=== PATIENT | male | born 1975 | race Caucasian/White ===

== ENCOUNTER 2020-12-20 14:43 | Emergency (ER) | payer SELFPAY ==
[~2020-12-20] VITALS: Ht 165.1 cm; Wt 87.9 kg
[2020-12-20 14:56] VITALS: BP 123/76
[2020-12-20 15:15] LABS: BASO % 1 % (0-3); EOS # 0.2 x10^3/uL (0.0-0.7); EOS % 2 % (0-3); HEMATOCRIT 42.6 % (39.0-53.0); HEMOGLOBIN 13.8 g/dL (13.0-17.5); LYMPH # 3.9 x10^3/uL (1.0-4.8); LYMPH % 43 % (24-48); MEAN CORPUSCULAR HEMOGLOBIN 31 pg (25-35); MEAN CORPUSCULAR HGB CONC 33 g/dL (31-37); MEAN CORPUSCULAR VOLUME 94 fL (79-100); MONO # 0.6 x10^3/uL (0.0-1.1); MONO % 7 % (0-9); NEUT # 4.3 x10^3uL (1.8-7.7); NEUT % 47 % (31-73); PLATELET COUNT 335 x10^3/uL (140-400); RED BLOOD COUNT 4.53 x10^6/uL (4.30-5.70)
[2020-12-20 15:27] LABS: CALCIUM 8.7 mg/dL (8.5-10.1); CREATININE 0.7 mg/dL (0.7-1.3); GFR 121.4; POTASSIUM 3.6 mmol/L (3.5-5.1)
[2020-12-20 15:32] LABS: ALBUMIN 3.3 g/dL (3.4-5.0); ALBUMIN/GLOBULIN RATIO 0.8 (1.0-1.7); TOTAL BILIRUBIN 0.2 mg/dL (0.2-1.0); TOTAL PROTEIN 7.5 g/dL (6.4-8.2)
--- NOTE | 2020-12-20 15:35 | PHYS DOC ---
Past History Past Surgical History: Other Additional Past Surgical Histo: necrotic bowel removal = colostomy in and out on may 2020 General Adult EDM: Chief Complaint: ALCOHOL INTOXICATION HPI: HPI: 45-year-old male presents via EMS with alcohol intoxication. The history comes from EMS. During the interview he was too intoxicated to answer my questions. He reportedly drank 2 bottles of whiskey today. Bystanders called EMS and they brought him here. No reported falls or trauma. Review of Systems: Review of Systems: Unable to assess based on patient's condition. Current Medications: Current Meds: Current Medications Medications (Trade) Dose Ordered Sig/Balwinder Start Time Stop Time Status Last Admin Dose Admin Multivitamins/ Minerals 10 ml/ Folic Acid 1 mg/ Thiamine HCl 100 mg/Sodium Chloride 1,011.3 ml @ 1,000.187 mls/hr 1X ONCE 12/20/20 15:15 12/20/20 16:15 UNV Physical Exam: PE: Constitutional: Well developed, well nourished, no acute distress. [] HENT: Normocephalic, atraumatic, bilateral external ears normal, oropharynx moist, no oral exudates, nose normal. [] Eyes: PERRLA, EOMI, conjunctiva normal, no discharge. [] Neck: No tenderness, supple, no stridor. [] Cardiovascular: Heart rate 101, regular rhythm, no murmur [] Lungs & Thorax: Bilateral breath sounds clear to auscultation [] Abdomen: Bowel sounds normal, soft, no tenderness, no masses, no pulsatile masses. [] Skin: Warm, dry, no erythema, no rash. [] Extremities: No tenderness, no cyanosis, no clubbing, ROM intact, no edema. [] Neurologic: Intoxicated [] Psychologic: Unable to assess. [] Current Patient Data: Labs: Laboratory Tests Test 12/20/20 14:49 White Blood Count 9.0 x10^3/uL (4.0-11.0) Red Blood Count 4.53 x10^6/uL (4.30-5.70) Hemoglobin 13.8 g/dL (13.0-17.5) Hematocrit 42.6 % (39.0-53.0) Mean Corpuscular Volume 94 fL (79-100) Mean Corpuscular Hemoglobin 31 pg (25-35) Mean Corpuscular Hemoglobin Concent 33 g/dL (31-37) Red Cell Distribution Width 15.0 % (11.5-14.5) H Platelet Count 335 x10^3/uL (140-400) Neutrophils (%) (Auto) 47 % (31-73) Lymphocytes (%) (Auto) 43 % (24-48) Monocytes (%) (Auto) 7 % (0-9) Eosinophils (%) (Auto) 2 % (0-3) Basophils (%) (Auto) 1 % (0-3) Neutrophils # (Auto) 4.3 x10^3uL (1.8-7.7) Lymphocytes # (Auto) 3.9 x10^3/uL (1.0-4.8) Monocytes # (Auto) 0.6 x10^3/uL (0.0-1.1) Eosinophils # (Auto) 0.2 x10^3/uL (0.0-0.7) Basophils # (Auto) 0.0 x10^3/uL (0.0-0.2) EKG: EKG: [] Radiology/Procedures: Radiology/Procedures: [] Heart Score: C/O Chest Pain: N/A Risk Factors: Risk Factors: DM, Current or recent (<one month) smoker, HTN, HLP, family his tory of CAD, obesity. Risk Scores: Score 0 - 3: 2.5% MACE over next 6 weeks - Discharge Home Score 4 - 6: 20.3% MACE over next 6 weeks - Admit for Clinical Observation Score 7 - 10: 72.7% MACE over next 6 weeks - Early Invasive Strategies Course & Med Decision Making: Course & Med Decision Making Pertinent Labs and Imaging studies reviewed. (See chart for details) After we get the patient alcohol level back which is greater than 460, I went in there and made sure the patient would wake up. He was able to tell me that he drank a lot today and that he did not fall or hit his head. He does not provide any other useful history but he is not in a coma. I have ordered a banana bag and will follow that with more fluids. The patient will be observed for a while in the ER. The rest the patient's work-up is unremarkable. He will be discharged when he is clinically sober. [] Sahraon Disclaimer: Dragon Disclaimer: This electronic medical record was generated, in whole or in part, using a voice recognition dictation system. Departure Departure: Impression: Primary Impression: Alcohol intoxication Qualified Codes: F10.921 - Alcohol use, unspecified with intoxication delirium Disposition: HOME / SELF CARE / HOMELESS Condition: STABLE Referrals: PCP,NO (PCP) Patient Instructions: Alcohol Intoxication, [id number] AUSTEN CHAIREZ DO Dec 20, 2020 15:35
[2020-12-20] MEDS ORDERED: MVI, ADULT NO.4 WITH VIT K 10 ML, FOLIC ACID INJ 1 MG, THIAMINE INJ 100 MG in IV NORMAL... IV ONE (16:00)
[2020-12-20 17:33] LABS: BACTERIA,URINE 0 /HPF (0-FEW); BILIRUBIN,URINE NEG (NEG); CLARITY,URINE CLEAR; COLOR,URINE YELLOW; GLUCOSE,URINE NEG (NEG); NITRITE,URINE NEG (NEG); RBC,URINE 0 /HPF (0-2); UROBILINOGEN,URINE 0.2 mg/dL (0.2 mg/dL); WBC,URINE 0 /HPF (0-4)
[2020-12-20 17:34] LABS: BARBITURATES NEG (NEG); BENZODIAZEPINES NEG (NEG); CANNABINOIDS NEG (NEG); COCAINE NEG (NEG); METHADONE NEG (NEG); OPIATES NEG (NEG); PHENCYCLIDINE NEG (NEG)
[2020-12-20 17:37] LABS: AMPHETAMINE/METHAMPHETAMINE NEG (NEG)
[2020-12-20] MEDS ORDERED: IV NORMAL SALINE 1,000ML 1,000 ML IV ONE (18:00)
[2020-12-20] MEDS ORDERED: ALBUTEROL SULFATE 8GM INHALER. ONE (19:25)
[2020-12-20] MEDS ORDERED: ALBUTEROL SULFATE 8GM INHALER. INH ONE (19:30)
[2020-12-20] MEDS ORDERED: CHLO25CA9 PO (20:49)
[2020-12-21] MEDS ORDERED: CHLO25CA9 PO (00:28)
== END 2020-12-20 21:11 | disposition home or self-care (01) ==
LOC: ER 14:43
DX: F10.129 Alcohol abuse with intoxication, unspecified (principal); Y90.8 Blood alcohol level of 240 mg/100 ml or more
CPT/HCPCS: 36415; 80053; 80307; 81001; 85025; 96361; 96365; 96366; 99284; G0480; J7030

== ENCOUNTER 2020-12-31 14:54 | Emergency (ER) | payer SELFPAY ==
[~2020-12-31] VITALS: Ht 165.1 cm; Wt 87.9 kg
[~2020-12-31 14:54] MED LIST: CHLO25CA9 PO
[2020-12-31] MEDS ORDERED: MVI, ADULT NO.4 WITH VIT K 10 ML, FOLIC ACID INJ 1 MG, THIAMINE INJ 100 MG in IV NORMAL... IV ONE (15:00)
[2020-12-31] MEDS ORDERED: NALOXONE 0.4 MG/ML VIAL. IV ONE (15:00)
[2020-12-31 15:17] LABS: BASO # 0.1 x10^3/uL (0.0-0.2); BASO % 1 % (0-3); EOS # 0.3 x10^3/uL (0.0-0.7); EOS % 4 % (0-3); HEMATOCRIT 42.2 % (39.0-53.0); HEMOGLOBIN 13.8 g/dL (13.0-17.5); LYMPH # 3.5 x10^3/uL (1.0-4.8); LYMPH % 44 % (24-48); MEAN CORPUSCULAR HEMOGLOBIN 31 pg (25-35); MEAN CORPUSCULAR HGB CONC 33 g/dL (31-37); MEAN CORPUSCULAR VOLUME 94 fL (79-100); MONO # 0.8 x10^3/uL (0.0-1.1); MONO % 10 % (0-9); NEUT # 3.4 x10^3uL (1.8-7.7); NEUT % 42 % (31-73); PLATELET COUNT 246 x10^3/uL (140-400); RED BLOOD COUNT 4.48 x10^6/uL (4.30-5.70); RED CELL DISTRIBUTION WIDTH 15.8 % (11.5-14.5); WHITE BLOOD COUNT 7.9 x10^3/uL (4.0-11.0)
[2020-12-31 15:32] LABS: CALCIUM 8.9 mg/dL (8.5-10.1); CREATININE 0.7 mg/dL (0.7-1.3); GFR 121.4; POTASSIUM 3.4 mmol/L (3.5-5.1)
--- NOTE | 2020-12-31 15:42 | RAD ---
Single AP view of the chest. Comparison: None. Indication: Altered mental status. Findings: The heart is not enlarged. There is no pneumothorax or effusion. Is mild bilateral interstitial opac ities are identified. Impression: 1. Mild bilateral interstitial opacities may be atypical infection. Electronically signed by: Home Morris MD (12/31/2020 3:40 PM) [facility]
--- NOTE | 2020-12-31 15:43 | RAD ---
Exam: CT head and cervical spine INDICATION: Altered mental status TECHNIQUE: Sequential axial images through the head and cervical spine were obtained without the admi nistration of IV contrast. Exposure: One or more of the following in the visualized dose reduction techniques were utilized for this examination: 1. Automated exposure control 2. Adjustment of the MA and/or KV according to patient size 3. Use of iterative of reconstructive technique Comparisons: None FINDINGS: Head: No focal parenchymal lesion or hemorrhage is identified. There is no midline shift or sulcal effaceme nt. No acute vascular territory infarction is identified. Fagan-white distinction is preserved. The ventricular system is within normal limits without compression hydrocephalus. The basal cisterns are well maintained. The visualized portions of the paranasal sinuses and mastoid air cells are well-pneumatized. No acute fractures. Cervical spine: Straightening of the cervical spine which may positional. Vertebral body heights are well-maintained. Fracture to the cervical spine is not identified. No significant spondylotic change in the cervical spine. Visualized paraspinal soft tissues are unremarkable. IMPRESSION: 1. No acute intracranial abnormality. 2. Negative CT C-spine for acute traumatic injury. Electronically signed by: María Linda MD (12/31/2020 3:40 PM) [facility]
[2020-12-31 15:47] LABS: ALBUMIN 3.4 g/dL (3.4-5.0); ALBUMIN/GLOBULIN RATIO 0.9 (1.0-1.7); MAGNESIUM 2.4 mg/dL (1.8-2.4); TOTAL BILIRUBIN 0.3 mg/dL (0.2-1.0); TOTAL PROTEIN 7.4 g/dL (6.4-8.2)
[2020-12-31 16:04] LABS: BARBITURATES NEG (NEG); BENZODIAZEPINES NEG (NEG); CANNABINOIDS NEG (NEG); COCAINE NEG (NEG); METHADONE NEG (NEG); OPIATES NEG (NEG); PHENCYCLIDINE NEG (NEG)
--- NOTE | 2020-12-31 16:18 | EKG ---
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
--- NOTE | 2020-12-31 16:22 | PHYS DOC ---
Past History Past Medical History: Alcoholism Additional Past Medical Histor: Sleep apnea Past Medical History Limited secondary to altered mental status/intoxication Past Surgical History: Other Additional Past Surgical Histo: necrotic bowel removal = colostomy in and out on may 2020 Past Surgical History Limited secondary to altered mental status/intoxication Alcohol Use: Heavy Social History Limited secondary to altered mental status/intoxication General Adult EDM: Chief Complaint: ALTERED MENTAL STATUS HPI: HPI: 45-year-old male presents via EMS after being found unconscious outside. Patient with history of chronic alcoholism. EMS reports alcohol noted on patient's breath. Patient also found to have abrasion to left forehead. C-collar placed by EMS. Blood sugar within normal limits. History of present illness limited secondary to altered mental status/intoxication. Review of Systems: Review of Systems: Review of systems limited secondary to altered mental status/intoxication Current Medications: Current Meds: Current Medications Medications (Trade) Dose Ordered Sig/Balwinder Start Time Stop Time Status Last Admin Dose Admin Multivitamins/ Minerals 10 ml/ Folic Acid 1 mg/ Thiamine HCl 100 mg/Sodium Chloride 1,011.3 ml @ 1,000.187 mls/hr 1X ONCE 12/31/20 15:00 12/31/20 16:01 DC 12/31/20 16:15 1,000.187 MLS/HR Naloxone HCl (Narcan) 0.4 mg 1X ONCE 12/31/20 15:00 12/31/20 15:08 DC Allergies: Allergies: Allergies Coded Allergies Type Severity Reaction Last Updated Verified cinnamon Allergy Unknown 12/20/20 Yes Physical Exam: PE: Constitutional: Obtunded, smell of ETOH HENT: Normocephalic, small left forehead healing abrasion noted Eyes: Pupils 6mm and sluggish, conjunctiva normal, no discharge Neck: C-collar in place, supple Lungs & Thorax: No respiratory distress, equal chest rise and fall Abdomen: Soft, no tenderness, no distention Skin: Warm, dry, no erythema, small forehead abrasion Extremities: No tenderness, ROM intact, no edema Neurologic: GCS 9 (eye 2, verbal 2, motor 5), obtunded Psychologic: Unable to obtain Current Patient Data: Labs: Laboratory Tests Test 12/31/20 15:00 White Blood Count 7.9 x10^3/uL (4.0-11.0) Red Blood Count 4.48 x10^6/uL (4.30-5.70) Hemoglobin 13.8 g/dL (13.0-17.5) Hematocrit 42.2 % (39.0-53.0) Mean Corpuscular Volume 94 fL (79-100) Mean Corpuscular Hemoglobin 31 pg (25-35) Mean Corpuscular Hemoglobin Concent 33 g/dL (31-37) Red Cell Distribution Width 15.8 % (11.5-14.5) H Platelet Count 246 x10^3/uL (140-400) Neutrophils (%) (Auto) 42 % (31-73) Lymphocytes (%) (Auto) 44 % (24-48) Monocytes (%) (Auto) 10 % (0-9) H Eosinophils (%) (Auto) 4 % (0-3) H Basophils (%) (Auto) 1 % (0-3) Neutrophils # (Auto) 3.4 x10^3uL (1.8-7.7) Lymphocytes # (Auto) 3.5 x10^3/uL (1.0-4.8) Monocytes # (Auto) 0.8 x10^3/uL (0.0-1.1) Eosinophils # (Auto) 0.3 x10^3/uL (0.0-0.7) Basophils # (Auto) 0.1 x10^3/uL (0.0-0.2) Sodium Level 143 mmol/L (136-145) Potassium Level 3.4 mmol/L (3.5-5.1) L Chloride Level 107 mmol/L (98-107) Carbon Dioxide Level 24 mmol/L (21-32) Anion Gap 12 (6-14) Blood Urea Nitrogen 14 mg/dL (8-26) Creatinine 0.7 mg/dL (0.7-1.3) Estimated GFR (Cockcroft-Gault) 121.4 BUN/Creatinine Ratio 20 (6-20) Glucose Level 101 mg/dL (70-99) H Calcium Level 8.9 mg/dL (8.5-10.1) Magnesium Level 2.4 mg/dL (1.8-2.4) Total Bilirubin 0.3 mg/dL (0.2-1.0) Aspartate Amino Transferase (AST) 28 U/L (15-37) Alanine Aminotransferase (ALT) 37 U/L (16-63) Alkaline Phosphatase 109 U/L (46-116) Ammonia 25 mcmol/L (11-34) Creatine Kinase 71 U/L (39-308) Creatine Kinase MB (Mass) 1.4 ng/mL (0.0-3.6) Creatine Kinase MB Relative Index 2.0 % (0-4) Troponin I Quantitative < 0.017 ng/mL (0-0.055) Total Protein 7.4 g/dL (6.4-8.2) Albumin 3.4 g/dL (3.4-5.0) Albumin/Globulin Ratio 0.9 (1.0-1.7) L Ethyl Alcohol Level 507 mg/dL (0-10) *H EKG: EKG: @1541 NSR at 92bpm, NO ST elevation, QRS 100ms, QT/QTc 384/480ms Radiology/Procedures: Radiology/Procedures: PROCEDURE: PORTABLE CHEST 1V Single AP view of the chest. Comparison: None. Indication: Altered mental status. Findings: The heart is not enlarged. There is no pneumothorax or effusion. Is mild bilateral interstitial opacities are identified. Impression: 1. Mild bilateral interstitial opacities may be atypical infection. Electronically signed by: Home Morris MD (12/31/2020 3:40 PM) [facility] PROCEDURE: CT HEAD AND CERVICAL SPINE WO Exam: CT head and cervical spine INDICATION: Altered mental status TECHNIQUE: Sequential axial images through the head and cervical spine were obtained without the administration of IV contrast. Exposure: One or more of the following in the visualized dose reduction techniques were utilized for this examination: 1. Automated exposure control 2. Adjustment of the MA and/or KV according to patient size 3. Use of iterative of reconstructive technique Comparisons: None FINDINGS: Head: No focal parenchymal lesion or hemorrhage is identified. There is no midline shift or sulcal effacement. No acute vascular territory infarction is identified. Fagan-white distinction is preserved. The ventricular system is within normal limits without compression hydro cephalus. The basal cisterns are well maintained. The visualized portions of the paranasal sinuses and mastoid air cells are well- pneumatized. No acute fractures. Cervical spine: Straightening of the cervical spine which may positional. Vertebral body heights are well-maintained. Fracture to the cervical spine is not identified. No significant spondylotic change in the cervical spine. Visualized paraspinal soft tissues are unremarkable. IMPRESSION: 1. No acute intracranial abnormality. 2. Negative CT C-spine for acute traumatic injury. Electronically signed by: María Linda MD (12/31/2020 3:40 PM) [id number] Heart Score: C/O Chest Pain: N/A Course & Med Decision Making: Course & Med Decision Making Pertinent Labs and Imaging studies reviewed. (See chart for details) Patient presents via EMS with altered mental status which appears more consistent for alcohol intoxication. A forehead contusion/abrasion noted. C- collar in place upon patient's arrival. CT head/cervical spine without acute process. Chest x-ray obtained with some signs of atelectasis versus atypical infection. Covid testing obtained. Labs obtained and posted to chart. WBC within normal limits. Lactic acid elevated to 2.8. EtOH greater than 500. Banana bag initiated. Hypokalemia noted. Patient monitored in emergency department until clinically sober. Potassium replaced. Lactic acid more likely secondary to intoxication/alcohol abuse Patient stable for discharge with outpatient follow-up with PCP. Discussed findings and plan with patient and spouse, who acknowledges understanding and ag reement. Agapito Disclaimer: Agapito Disclaimer: This electronic medical record was generated, in whole or in part, using a voice recognition dictation system. Departure Departure: Impression: Primary Impression: Alcohol intoxication Qualified Codes: F10.929 - Alcohol use, unspecified with intoxication, unspecified Additional Impressions: Lactic acidosis Hypokalemia Disposition: 01 HOME / SELF CARE / HOMELESS Condition: STABLE Referrals: PCP,NO (PCP) Patient Instructions: Alcohol and Drug Addiction, Finding Treatment, Alcohol, FAQs, Chronic Alcoholism, Hypokalemia-Brief, Lactic Acid, Lactate, Potassium Content of Foods Additional Instructions: Please call [facility] at to seek help for your mental health and/or drug/alcohol abuse. SUHA PICHARDO DO Dec 31, 2020 16:22
[2020-12-31 16:26] LABS: AMPHETAMINE/METHAMPHETAMINE NEG (NEG)
[2020-12-31 16:55] LABS: BACTERIA,URINE FEW /HPF (0-FEW); BILIRUBIN,URINE NEG (NEG); CLARITY,URINE CLEAR; COLOR,URINE YELLOW; GLUCOSE,URINE NEG (NEG); NITRITE,URINE NEG (NEG); RBC,URINE 0 /HPF (0-2); SQUAMOUS EPITHELIAL CELL,UR FEW /LPF; UROBILINOGEN,URINE 0.2 mg/dL (0.2 mg/dL)
[2020-12-31 19:45] VITALS: BP 112/70
== END 2020-12-31 19:52 | disposition home or self-care (01) ==
LOC: ER 14:54
DX: F10.129 Alcohol abuse with intoxication, unspecified (principal); E87.2 Acidosis; E87.6 Hypokalemia; Z20.822 Contact with and (suspected) exposure to COVID-19
CPT/HCPCS: 36415; 70450; 71045; 72125; 80053; 80307; 81001; 82140; 82553; 83605; 83735; 84484; 85025; 87426; 93005; 96365; 96366; 99285; C9803; G0480; J7030; U0003